=== PATIENT | male | born 1965 | race Caucasian/White ===

== ENCOUNTER → 2019-11-11 10:07 | Outpatient (BNVA) | payer SELFPAY | PROVIDERS: Visit Provider Nurse Practitioner Family | DX: L72.9 Follicular cyst of the skin and subcutaneous tissue, unspecified (principal); L02.212 Cutaneous abscess of back [any part, except buttock and flank] | CPT/HCPCS: 84450; 87070 ==

== ENCOUNTER 2019-12-01 07:30 | Day surgery (SDC) | payer SELFPAY ==
[2019-11-28 15:07] VITALS: BMI 31.7
[2019-12-01 07:49] VITALS: BP 147/96; PULSE 71; RESP 20; TEMP 36.4; O2SAT 100
--- NOTE | 2019-12-01 07:54 | W.PM.OPSUD ---
Surgery/Procedure H&P Update DATE OF PROCEDURE: December 01, 2019 DATE H&P PERFORMED: 11/28/19 H&P UPDATE INFORMATION: I have reviewed H&P completed within last 30 days, I have examined patient prior to procedure and No changes to prior documentation PREOP DIAGNOSIS: Sebaceous cyst on back PLANNED PROCEDURE: Operation Date: 12/01/19 08:30 Proposed Procedures p Excession of cyst times 2 11884 L72.3 L08.9(Not Applicable) - Jimmy Waite MD
[2019-12-01] MEDS: sodium chloride 0.9% 1,000 ML 30 ML IV (07:59)
--- NOTE | 2019-12-01 08:10 | ANES.PREANE2 ---
Pre-Anesthetic Assessment Pre-Anesthetic Assessment: Height/Weight: Height 1.78 m Weight 100.244 kg Temp Pulse Resp BP Pulse Ox 97.5 F L 71 20 H 147/96 100 12/01/19 07:49 12/01/19 07:49 12/01/19 07:49 12/01/19 07:49 12/01/19 07:49 Preop Diagnosis: Sebaceous cyst on back Proposed Procedure: Operation Date: 12/01/19 08:30 Proposed Procedures p Excession of cyst times 2 86817 L72.3 L08.9(Not Applicable) - Jimmy Waite MD Familial anesthetic complications: None Was Beta Comfort taken within 24 hours: N/A Last intake: Intake Last Liquid Date 11/30/19 Last Liquid Time 19:30 Last Solid Date 11/30/19 Last Solid Time 19:00 Social: Social History: No alcohol and No tobacco Exam: Pre-Anes Outpt Exam: alert, oriented x 3, clear to auscultation bilaterally and regular rate & rhythm Airway: Cervical ROM: WNL MP: 4 Dentition: Chipped Pulmonary: Pulmonary: None reported CV/HEM: CV/HEM: None reported : : None reported Hepatic: Hepatic: None reported GI: GI: None reported Metabolic: Metabolic: None reported Musc/skel: Musc/skel: None reported Neuropsych: Neuropsych: None reported Anesthetic Plan: ASA status: 1 Anesthesia: MAC Risk of > 500 ml blood loss (7ml/kg in children): No Meds/Allergies Current Medications: Current Medications Generic Name Dose Route Start Last Admin Trade Name Freq PRN Reason Stop Dose Admin Sodium Chloride 1,000 mls @ 30 ml s/hr 12/01/19 07:45 12/01/19 07:59 Sodium Chloride 0.9% IV 12/02/19 07:44 30 mls/hr .Q24H LINDSEY Administration PFSH Anesthesia PFSH: Social History Smoking and tobacco status: never smoked History of recent travel: No Data Anesthesia Cardiac Studies: No Data to Display
[2019-12-01] MEDS: lidocaine 1% INJ 20 mL SUBCUT (08:46)
[2019-12-01] MEDS: neomycin-poly-bacitracin oint 28 gm 1 APPLIC TOPICAL (09:18)
[2019-12-01 09:28] VITALS: BP 109/72; PULSE 66; RESP 16; TEMP 36.5; O2SAT 96
[2019-12-01 09:39] VITALS: BP 127/85; PULSE 64; RESP 18; O2SAT 96
--- NOTE | 2019-12-01 09:45 | P.OP_ITS ---
Operative Report Date of procedure: December 01, 2019 Pre-op Diagnosis: Sebaceous cyst on back, subcutaneous mass upper back Post-op Diagnosis: 1. 3 x 3 cm subcutaneous mass right upper back 2. Infected sebaceous cyst measuring 4 x 4 centimeter Procedure Done: * Excision of infected sebaceous cyst measuring 4 x 4 cm * Excision of subcutaneous mass upper back measuring 3 x 3 cm Pathology: Subcutaneous mass and sebaceous cyst Surgeon: Jimmy Waite Anesthesia: MAC Estimated blood loss (mL): 10 Condition: stable Disposition: same day Procedure: The patient was taken to the operating room and placed in the right lateral position under MAC after IV antibiotic had been administered. The area around the sebaceous cyst of the palpable mass on the back was prepped and draped in a sterile manner. 1% lidocaine with 0.5% Marcaine was infiltrated around the 2 lesions. Using a 15 blade a 3 cm transverse incision was made over the subcutaneous mass in the right upper back, subcutaneous tissue was divided using electrocautery and the mass was dissected free from the surrounding subcutaneous tissue and underlying muscular fascia. Wound was irrigated with saline, hemostasis ensured and subcutaneous tissues approximated using interrupted 3-0 Vicryl suture and skin was closed using running subcuticular 4-0 Monocryl suture and surgical glue. Pressure dressings were applied. An elliptical incision was made around the 3 puncti at the site of the infected sebaceous cyst and dissection was carried into the subcutaneous plane using electrocautery and the infected sebaceous cyst was dissected free from the surrounding subcutaneous tissue and underlying muscular fascia. Wound was irrigated with saline, hemostasis ensured and subcutaneous tissues approximated using interrupted 3-0 Vicryl suture and skin was closed using interrupted 3-0 Prolene suture. Antibiotic cream and sterile dressings were applied. The patient was stable throughout the procedure and was transferred to same-day in stable condition.
[2019-12-01 10:04] VITALS: BP 122/78; PULSE 62; RESP 20; O2SAT 98
== END 2019-12-01 10:14 | disposition home or self-care (01) ==
PROVIDERS: PCP Nurse Practitioner Family; Visit Provider Surgery
PROC: (CPT 11403; principal; 2019-12-01 08:30)
DX: L72.3 Sebaceous cyst (principal); L08.9 Local infection of the skin and subcutaneous tissue, unspecified
CPT/HCPCS: 11403; 11404; 12032 ×2; 12345; 88304; J0690; J2001; J2250; J2704; J3010; J3490; J7030

== ENCOUNTER 2023-04-05 17:32 | Emergency (ER) | payer SELFPAY ==
[2023-04-05] VITALS (7 sets, daily range): BP systolic 120–147; BP diastolic 73–90; PULSE 64–71; RESP 17–20; TEMP 36.6; O2SAT 91–100; BMI 28.3
--- NOTE | 2023-04-05 17:47 | W.ED.MALEGU ---
HPI - Male Genitourinary General: Chief complaint: Urogenital-Male Time Seen by Provider: 04/05/23 17:38 Source: patient Mode of arrival: ambulatory Limitations: no limitations History of Present Illness: 57-year-old male states he has not been able to urinate in the last 7 to 8 hours. He states been having some lower abdominal pain feels like he needs to urinate but states he just cannot go. No history of any prostate problems or difficulty urinating the past. Denies any hematuria denies any vomiting or diarrhea Associated symptoms: Deny nausea or vomiting Review of Systems Const: Denies: fever(s) or chills ENMT: Denies: throat pain or dental pain Card: Denies: chest pain Resp: Denies: dyspnea GI: Denies: abdominal pain, nausea, vomiting or diarrhea : Reports: difficulty urinating Musc: Denies: neck pain or back pain Skin/Breast: Denies: rash Neuro: Denies: headache(s) PFSH ED PFSH: Surgical History History of colonoscopy History of epidermal inclusion cyst excision Family History Other Anesthesia complication Denies family history of Bleeding disorder Social History Smoking and tobacco status: never smoked Physical Exam Const: COMMON NORMALS: no acute distress, patient oriented x3 and healthy appearing HENMT: COMMON NORMALS: normocephalic and atraumatic HEAD & SCALP: normocephalic and atraumatic Neck/C-Spine: COMMON NORMALS: full ROM and supple Chest: COMMONS NORMALS: normal inspection of the chest Resp: COMMON NORMALS: normal respiratory effort Cardio: COMMON NORMALS: regular rate, regular rhythm and No murmurs present (Cardio) RATE: regular rate RHYTHM: regular rhythm GI: COMMON NORMALS: Normal to inspection, nondistended, normoactive bowel sounds present, Soft to palpation, non-tender and no masses PALPATION: Yes Soft to palpation Extremity: COMMON NORMALS: normal to inspection and full ROM Neuro: COMMON NORMALS: patient oriented x3, moves all extremities and no focal motor deficits Psych: COMMON NORMALS: mental status grossly normal, Normal thought process present and cooperative THOUGHT PROCESS: Normal thought process present Skin: COMMON NORMALS: no rashes or lesions noted and no wounds GENERAL SKIN EXAM: no rashes or lesions noted Course Vital Signs: Vital signs: Vital Signs Temperature 97.8 F 04/05/23 17:42 Pulse Rate 68 04/05/23 17:42 Respiratory Rate 20 H 04/05/23 20:13 Blood Pressure 147/90 04/05/23 17:42 Pulse Oximetry 100 04/05/23 20:13 MDM - Male Medical Decision Making Patient presents with difficulty urinating started having flank pain here as well as CT does show a kidney stone no signs of urinary tract infection no kidney dysfunction he has been able to urinate here on his own pain is much improved he is stable for discharge she is to follow-up with urology return if worsening he understands agrees to plan. Lab Data 04/05/23 18:18 04/05/23 18:18 Radiology Impressions Abdomen/Pelvis CT 04/05/23 18:17 IMPRESSION: 1. Obstructing 5 mm calculus in the distal right ureter with moderate hydronephrosis. 2. Mild wall thickening of the urinary bladder may relate to decompression. Cystitis is not excluded. Clinical correlation recommended. COMMENTS: Consistent with the [employer]'s Incidental Findings Committee white paper (J Am Ani Radiol 2018): Any incidental renal lesion less than 1 cm or classified as too small to characterize, or any incidental cystic renal lesion characterized as simple-appearing, is likely benign. No follow-up imaging is recommended for these lesions per consensus recommendations based on imaging criteria. Laboratory Results WBC 8.35 10^3/uL (3.29-11.43) 04/05/23 18:18 RBC 5.30 10^6/uL (3.85-5.65) 04/05/23 18:18 Hgb 15.20 g/dL (11.27-16.99) 04/05/23 18:18 Hct 43.5 % (37-53) 04/05/23 18:18 MCV 82.1 fl (82-101) 04/05/23 18:18 MCH 28.7 pg (27-33) 04/05/23 18:18 MCHC 34.9 g/dL (30-55) 04/05/23 18:18 RDW 12.9 % (12.1-15.1) 04/05/23 18:18 Plt Count 204 10^3/cmm (157-399) 04/05/23 18:18 MPV 11.4 fL (7.4-10.4) H 04/05/23 18:18 Neut % (Auto) 69.0 % 04/05/23 18:18 Lymph % (Auto) 19.3 % 04/05/23 18:18 [place] % (Auto) 9.0 % 04/05/23 18:18 Eos % (Auto) 1.9 % 04/05/23 18:18 Baso % (Auto) 0.6 % 04/05/23 18:18 Neut # (Auto) 5.76 10^3/uL (1.8-7.7) 04/05/23 18:18 Lymph # (Auto) 1.6 10^3/uL (0.8-4.8) 04/05/23 18:18 [place] # (Auto) 0.8 10^3/uL (0.2-0.9) 04/05/23 18:18 Eos # (Auto) 0.2 10^3/uL (0.0-0.8) 04/05/23 18:18 Baso # (Auto) 0.1 10^3/uL (0.0-0.1) 04/05/23 18:18 Nucleated RBC % (auto) 0 % 04/05/23 18:18 Nucleated RBCs # 0.0 /100WBC 04/05/23 18:18 Sodium 135 mmol/L (136-145) L 04/05/23 18:18 Potassium 3.8 mmol/L (3.5-5.1) 04/05/23 18:18 Chloride 99 mmol/L (98-107) 04/05/23 18:18 Carbon Dioxide 24 mmol/L (22-29) 04/05/23 18:18 Anion Gap 15.8 (5-19) 04/05/23 18:18 BUN 22 mg/dL (6-20) H 04/05/23 18:18 Creatinine 1.4 mg/dL (0.7-1.2) H 04/05/23 18:18 GFR Calculation 52.1 mL/min (90-130) L 04/05/23 18:18 Glucose 110 mg/dL (65-115) 04/05/23 18:18 Calculated Osmolality 284 mOsm/kg (285-295) L 04/05/23 18:18 Calcium 9.7 mg/dL (8.5-10.5) 04/05/23 18:18 Total Bilirubin 1.1 mg/dL (0.15-1.2) 04/05/23 18:18 AST 19 U/L (0-40) 04/05/23 18:18 ALT 20 U/L (0-41) 04/05/23 18:18 Alkaline Phosphatase 95 U/L (40-130) 04/05/23 18:18 Total Protein 7.2 g/dL (6.6-8.7) 04/05/23 18:18 Albumin 4.6 g/dL (3.5-5.2) 04/05/23 18:18 Globulin 2.6 g/dL (1.3-4.6) 04/05/23 18:18 Urine Color Yellow (Yellow) 04/05/23 18:00 Urine Appearance Clear (CLEAR) 04/05/23 18:00 Urine pH 5 (5-7) 04/05/23 18:00 Ur Specific Fisher 1.030 (1.005-1.030) 04/05/23 18:00 Urine Protein Trace (Negative) 04/05/23 18:00 Urine Glucose (UA) Norm (Normal) 04/05/23 18:00 Urine Ketones Negative (Negative) 04/05/23 18:00 Urine Blood 3+ (Negative) H 04/05/23 18:00 Urine Nitrate Negative (Negative) 04/05/23 18:00 Urine Bilirubin Neg (Negative) 04/05/23 18:00 Urine Urobilinogen Neg mg/dL (Negative) 04/05/23 18:00 Ur Leukocyte Esterase Negative (Negative) 04/05/23 18:00 Urine RBC 25-40 /hpf (0-2) H 04/05/23 18:00 Urine WBC 0-4 /hpf (0-5) H 04/05/23 18:00 Ur Squamous Epith Cells None /hpf (0-5) 04/05/23 18:00 Amorphous Sediment Not Reportable 04/05/23 18:00 Urine Bacteria 1+ /hpf (NONE) H 04/05/23 18:00 Hyaline Casts 0-4 /lpf H 04/05/23 18:00 Urine Mucus 2+ /hpf 04/05/23 18:00 Discharge Plan Discharge Patient Disposition: Home Clinical Impression: Kidney stone Condition: Stable Prescriptions: New hydrocodone-acetaminophen 5-325 mg tablet 1 tab PO Q6H PRN (Reason: pain) Qty: 14 0RF ondansetron 4 mg tablet,disintegrating 4 mg PO Q6H PRN (Reason: nausea and vomiting) Qty: 14 0RF Flomax 0.4 mg capsule 0.4 mg PO DAILY Qty: 4 0RF Discharge Orders: Discharge ED (Routine); Ordered 04/05/23 Ordered By: Tamiko Montoya Referrals: Stephanie Castro FNP [Primary Care Provider] - Discharge Diet: Advance as tolerated Discharge Activity: Resume usual activity Patient Instructions: Kidney Stones (ED), Opioid Safety Coding Level of Care Code ED Surgeon/President for Ximena Peters
--- NOTE | 2023-04-05 18:17 | CTR_ITS ---
PROCEDURE INFORMATION: Exam: CT Abdomen And Pelvis Without Contrast Exam date and time: 04/05/2023 6:58 PM Age: 57 years old Clinical indication: Abdominal pain; Additional info: Urinary retention TECHNIQUE: Imaging protocol: Computed tomography of the abdomen and pelvis without contrast. Radiation optimization: All CT scans at this facility use at least one of these dose optimization techniques: automated exposure control; mA and/or kV adjustment per patient size (includes targeted exams where dose is matched to clinical indication); or iterative reconstruction. REPORTING DATA: Count of CT and Cardiac NM exams in prior 12 months: This patient has received 0 known CTs and 0 known cardiac nuclear medicine studies in the 12 months prior to the current study. COMPARISON: No relevant prior studies available. RADIATION DOSE METRICS: Total DLP (mGy-cm): 652 FINDINGS: Liver: Normal. No mass. Gallbladder and bile ducts: Normal. No calcified stones. No ductal dilation. Pancreas: Normal. No ductal dilation. Spleen: Calcified granulomas in the spleen. Adrenal glands: Normal. No mass. Kidneys and ureters: Obstructing 5 mm calculus in the distal right ureter. Columning of the right ureter with moderate hydronephrosis. Right perinephric stranding. Left renal cyst, Hounsfield units less than 20. No follow-up imaging is recommended. The left kidney is otherwise unremarkable with no hydronephrosis. Stomach and bowel: Mild diverticulosis of the colon. No diverticulitis. Mild submucosal fatty deposition in the proximal and transverse colon. The stomach and small bowel are unremarkable. No wall thickening or obstruction. Appendix: The appendix is visualized and is normal. Intraperitoneal space: Unremarkable. No free air. No significant fluid collection. Vasculature: Unremarkable. No abdominal aortic aneurysm. Lymph nodes: Unremarkable. No enlarged lymph nodes. Urinary bladder: Olson catheter in a decompressed urinary bladder. Mild urinary bladder wall thickening measuring up to 9 mm. Reproductive: Vasectomy clips. There is fat density in the right hemiscrotum which could represent a fat graft or lipoma. Coarse calcifications in the prostate. Bones/joints: Mild degenerative changes of the spine. Degenerative right hip with subchondral cyst formation. No acute fracture. Soft tissues: Small fat containing umbilical hernia. CT/CT kidney stone 85485 IMPRESSION: 1. Obstructing 5 mm calculus in the distal right ureter with moderate hydronephrosis. 2. Mild wall thickening of the urinary bladder may relate to decompression. Cystitis is not excluded. Clinical correlation recommended. COMMENTS: Consistent with the [employer]'s Incidental Findings Committee white paper (J Am Ani Radiol 2018): Any incidental renal lesion less than 1 cm or classified as too small to characterize, or any incidental cystic renal lesion characterized as simple-appearing, is likely benign. No follow-up imaging is recommended for these lesions per consensus recommendations based on imaging criteria.
[2023-04-05 18:23] LABS: Basophils # 0.1 10^3/uL (0.0-0.1); Basophils % 0.6 %; Eosinophils # 0.2 10^3/uL (0.0-0.8); Eosinophils % 1.9 %; Hematocrit 43.5 % (37-53); Lymphocytes # 1.6 10^3/uL (0.8-4.8); Lymphocytes % 19.3 %; Mean Corpuscular HGB Conc 34.9 g/dL (30-55); Mean Corpuscular Hemoglobin 28.7 pg (27-33); Mean Corpuscular Volume 82.1 fl (82-101); Mean Platelet Volume 11.4 fL (7.4-10.4); Monocytes # 0.8 10^3/uL (0.2-0.9); Neutrophils # 5.76 10^3/uL (1.8-7.7); Nucleated Red Blood Cells % 0 %; Platelet Count 204 10^3/cmm (157-399); Red Cell Distribution Width 12.9 % (12.1-15.1); White Blood Count 8.35 10^3/uL (3.29-11.43)
[2023-04-05] MEDS: sodium chloride 0.9% 1,000 ML 999 ML IV (18:33)
[2023-04-05 18:42] LABS: Alanine Aminotransferase 20 U/L (0-41); Albumin Level 4.6 g/dL (3.5-5.2); Alkaline Phosphatase 95 U/L (40-130); Anion Gap 15.8 (5-19); Aspartate Amino Transferase 19 U/L (0-40); Blood Urea Nitrogen 22 mg/dL (6-20); Calcium 9.7 mg/dL (8.5-10.5); Carbon Dioxide 24 mmol/L (22-29); Chloride 99 mmol/L (98-107); Globulin 2.6 g/dL (1.3-4.6); Glomerular Filtration Rate 52.1 mL/min (90-130); Glucose 110 mg/dL (65-115); Osmolality Calculated 284 mOsm/kg (285-295); Potassium 3.8 mmol/L (3.5-5.1); Sodium 135 mmol/L (136-145); Total Bilirubin 1.1 mg/dL (0.15-1.2); Total Protein 7.2 g/dL (6.6-8.7)
[2023-04-05] MEDS: ondansetron 2 mg/ML SDV 2 mL 4 MG IVP (20:09)
[2023-04-05] MEDS: HYDROmorphone 1 mg/mL INJ 1 mL IVP (20:13)
[2023-04-05 20:15] LABS: Add Urine Microscopic? YES; Bilirubin Urine Neg (Negative); Blood Urine 3+ (Negative); Glucose Urine UA Norm (Normal); Ketones Urine Negative (Negative); Leukocyte Esterase Urine Negative (Negative); Nitrate Urine Negative (Negative); Protein Urine Trace (Negative); Urine Appearance Clear (CLEAR); Urine Color Yellow (Yellow); Urobilinogen Urine Neg (Negative); pH Urine 5 (5-7)
[2023-04-05 20:16] LABS: Add Urine Culture? Yes; Bacteria Urine 1+ /hpf; Hyaline Casts Urine 0-4 /lpf; Mucus Urine 2+ /hpf; RBC Urine 25-40 /hpf (0-2); WBC Urine 0-4 /hpf (0-5)
[2023-04-05] MEDS: ketorolac 30 mg/mL INJ 15 MG IVP (20:20)
--- NOTE | 2023-04-06 08:16 | DCPLANNER ---
Addendum entered by Saibne Joseph 04/06/23 08:23: programming development project manager spoke with patient, who stated that he would like to wait, follow up with his primary care physician before he followed up with a urologist. Patient stated that if he felt like he needed the referral that he would call case reviewer to make the referral. Original Note: programming development project manager had message to schedule a follow up appointment for patient with urology. programming development project manager called patient at [phone] to confirm where patient would like the referral sent to. programming development project manager unable to speak with patient or leave a voicemail due to phone going to a busy signal.
== END 2023-04-05 20:51 | disposition home or self-care (01) ==
PROVIDERS: Emergency Provider Emergency Medicine; PCP Nurse Practitioner Family
DX: N13.2 Hydronephrosis with renal and ureteral calculous obstruction (principal)
CPT/HCPCS: 36415; 74176; 80053; 81001; 85025; 87086; 96361; 96374; 96375; 99285; J1170; J1885; J2405; J7030